=== PATIENT | male | born 1930 | race Caucasian/White ===

== ENCOUNTER → 2018-02-24 | Outpatient (CLI) | payer MEDICARE, OTHER ==
[~2018-02-24] MED LIST: FEXO60; HYDACE5 PO; NAPR500 PO
[2018-02-24 13:45] LABS: Protein, Urine Quantitative 14.9 mg/dL (0.0-11.9)
[2018-02-24 13:48] LABS: Microalbumin, Urine Quant. 33.2 mg/L (0.000-20.000)
== END ==
LOC: LAB SHORT 09:14 → LAB 09:14
PROVIDERS: Internal Medicine Nephrology
DX: N18.2 Chronic kidney disease, stage 2 (mild) (principal); D63.1 Anemia in chronic kidney disease
CPT/HCPCS: 81050; 82043; 84156

== ENCOUNTER → 2019-12-29 | Outpatient (CLI) | payer MEDICARE, OTHER | END | disposition home or self-care (01) | LOC: PLD 13:28 → LAB SHORT 13:28 | DX: D04.22 Carcinoma in situ of skin of left ear and external auricular canal (principal) | CPT/HCPCS: 88305 ==